=== PATIENT | male | born 1965 | race Caucasian/White ===

== ENCOUNTER 2017-09-22 15:30 | Emergency (ER) | payer MEDICAID ==
[2017-09-22] MEDS ORDERED: Sodium Chloride 0.9% 1,000 ML IV ONE (15:31)
--- NOTE | 2017-09-22 15:47 | EDM.PDOC ---
ED HPI GENERAL MEDICAL PROBLEM - General Chief Complaint: Upper Extremity Injury/Pain Stated Complaint: AMBULANCE Time Seen by Provider: 09/22/17 15:31 - History of Present Illness INITIAL COMMENTS - FREE TEXT/NARRATIVE: HISTORY AND PHYSICAL: History of present illness: The patient is a 52-year-old male with a history of hypertension which he does not take medications for and prostate problems who had presented to [facility] earlier today after tripping and sustaining a simple fall impacting his left shoulder and causing it to dislocate. The patient has never had any injury to her shoulder before and did not hit his head or face and did not pass out or black out. He denies any head neck or back pain and has no other extremity complaints and had no systemic complaints prior to this fall. Patient last ate food this morning at 6 AM and last had a small amount of water when he was at [facility] about an hour ago. Patient has a history of pectus excavatum Review of systems: As per history of present illness and below otherwise all systems reviewed and negative. Past medical history: As per history of present illness and as reviewed below otherwise noncontributory. Surgical history: As per history of present illness and as reviewed below otherwise noncontributory. Social history: No reported history of drug or alcohol abuse. Family history: As per history of present illness and as reviewed below otherwise noncontributory. Physical exam: Gen.: Well-developed well-nourished man who is nontoxic and looks uncomfortable in the room. Vital signs are noted by me. HEENT: Atraumatic, normocephalic, pupils reactive, negative for conjunctival pallor or scleral icterus, mucous membranes moist, throat clear, neck supple, nontender, trachea midline. Her are no midline step-offs in his defects of the cervical spine Lungs: Clear to auscultation, breath sounds equal bilaterally, chest nontender. The patient has significant pectus excavatum Heart: S1S2, regular, rate and rhythm no overt murmurs Abdomen: Soft, nondistended, nontender. NABS. Pelvis: Stable nontender. Genitourinary: Deferred. Rectal: Deferred. Extremities: Atraumatic with full range of motion of all extremities with the exception of the left upper extremity where he has visible step off of the acromioclavicular joint and visible dislocation of the shoulder. There is no soft tissue swelling ecchymosis or palpable deformities of the clavicle proximal humerus and no distal tenderness or deformities noticed of the distal humerus elbow forearm wrist or hand. Pulses are intact as is neurovascular. Her , negative for cords or calf pain. Neurovascular unremarkable. Neuro: Awake, alert, oriented. Cranial nerves II through XII unremarkable. Cerebellum unremarkable. Motor and sensory unremarkable throughout. Exam nonfocal. Back: There are no midline step-offs in his defects of the thoracic or lumbar spine no posterior rib tenderness Diagnostics: X-ray left shoulder x 2 Therapeutics: IV fluids Dilaudid Zofran Patient received fentanyl and Zofran in route per EMS, shoulder immobilizer 1542: Case was discussed with Dr. Pichardo our orthopedic surgeon who is comfortable with me giving the patient some Dilaudid and attempting simple reduction in the ED. He will be available for conscious sedation and reduction if I am unable to perform the reduction. Procedure note: After 1 mg of Dilaudid with Zofran was given, the patient was positioned and using traction with scapular manipulation I was able to reduce the shoulder easily without complication. A postreduction film will be performed. A shoulder mobilizer was placed. Patient tolerated the procedure well without complications. He'll be referred to orthopedics clinic Postreduction x-ray reveals degenerative changes of the joints but normal alignment. Patient will be discharged home with the shoulder mobilizer and ortho follow-up Impression: Left shoulder anterior dislocation, reduced Definitive disposition and diagnosis as appropriate pending reevaluation and review of above. left shoulder Pain Score (Numeric/FACES): 8 - Related Data Allergies Allergy/AdvReac Type Severity Reaction Status Date / Time No Known Allergies Allergy Verified 09/22/17 15:37 Home Meds: Home Meds Prostate Medication 09/22/17 [History] Past Medical History - Past Health History Medical/Surgical History: Denies Medical/Surgical History Other HEENT History: broken, missing teeth - Past Surgical History Other Musculoskeletal Surgeries/Procedures:: knee surgery Social & Family History - Tobacco Use Smoking Status *Q: Current Every Day Smoker Years of Tobacco use: 30 Second Hand Smoke Exposure: Yes - Alcohol Use Days Per Week of Alcohol Use: 0 - Recreational Drug Use Recreational Drug Use: Yes Drug Use in Last 12 Months: No Recreational Drug Type: Reports: Marijuana/Hashish Recreational Drug Use Frequency: Not Used In Over 3 Months Recreational Drug Last Use: 6 years ago Review of Systems - Review of Systems Review Of Systems: ROS reveals no pertinent complaints other than HPI. ED EXAM, GENERAL - Physical Exam Exam: See Below (See dictation) Course - Vital Signs Last Recorded V/S: Last Vital Signs Temp 36.4 C 09/22/17 15:38 Pulse 65 09/22/17 15:38 Resp 16 09/22/17 15:38 BP 157/105 H 09/22/17 15:38 Pulse Ox 99 09/22/17 15:38 - Orders/Labs/Meds Orders: Active Orders 24 hr Category Date Time Status DME for Discharge [COMM] Stat Oth 09/22/17 15:59 Ordered Meds: Medications Discontinued Medications Generic Name Dose Route Start Last Admin Trade Name Archana PRN Reason Stop Dose Admin Hydromorphone HCl 1 mg 09/22/17 15:48 09/22/17 15:52 Dilaudid IVPUSH 09/22/17 15:49 1 mg ONETIME ONE Administration Sodium Chloride 1,000 mls @ 999 mls/hr 09/22/17 15:31 09/22/17 15:50 Normal Saline IV 09/22/17 16:31 999 mls/hr STAT ONE Administration Ondansetron HCl 4 mg 09/22/17 15:48 09/22/17 15:52 Zofran IVPUSH 09/22/17 15:49 4 mg ONETIME ONE Administration Departure - Departure Time of Disposition: 16:33 Disposition: Home, Self-Care 01 Condition: Good Clinical Impression: Dislocation, shoulder, inferior Qualifiers: Encounter type: initial encounter Laterality: left Qualified Code(s): S43.035A - Inferior dislocation of left humerus, initial encounter - Discharge Information Forms: ED Department Discharge Additional Instructions: The following information is given to patients seen in the emergency department who are being discharged to home. This information is to outline your options for follow-up care. We provide all patients seen in our emergency department with a follow-up referral. The need for follow-up, as well as the timing and circumstances, are variable depending upon the specifics of your emergency department visit. If you don't have a primary care physician on staff, we will provide you with a referral. We always advise you to contact your personal physician following an emergency department visit to inform them of the circumstance of the visit and for follow-up with them and/or the need for any referrals to a consulting specialist. The emergency department will also refer you to a specialist when appropriate. This referral assures that you have the opportunity for followup care with a specialist. All of these measure are taken in an effort to provide you with optimal care, which includes your followup. Under all circumstances we always encourage you to contact your private physician who remains a resource for coordinating your care. When calling for followup care, please make the office aware that this follow-up is from your recent emergency room visit. If for any reason you are refused follow-up, please contact the [facility] emergency department at and ask to speak to the emergency department charge nurse. [facility]--Orthopedic clinic [address] [address] Please wear shoulder immobilizer for the next 5-7 days at all times and do not remove and please call the ortho clinic tomorrow morning for follow-up appointment next week. Ice to area and [id number] medications for pain. Return to ER as needed and as discussed. - My Orders Last 24 Hours: My Active Orders 09/22/17 15:59 DME for Discharge [COMM] Stat - Assessment/Plan Last 24 Hours: My Active Orders 09/22/17 15:59 DME for Discharge [COMM] Stat
[2017-09-22] MEDS ORDERED: HYDROmorphone 2 MG/ML Syringe IVPUSH ONE (15:48)
[2017-09-22] MEDS ORDERED: Ondansetron 4 MG/2 ML SDV IVPUSH ONE (15:48)
--- NOTE | 2017-09-22 15:55 | CR ---
EXAMINATION: Left shoulder HISTORY: Pain COMPARISON: None TECHNIQUE: Single AP view FINDINGS/IMPRESSION: Single AP view demonstrates an inferior glenohumeral dislocation. Otherwise osse ous structures appear intact. Bone mineralization is otherwise normal.
--- NOTE | 2017-09-22 16:22 | CR ---
EXAMINATION: Left shoulder HISTORY: Post reduction COMPARISON: Same day TECHNIQUE: 2 views FINDINGS/IMPRESSION: The humerus appears successfully reduced the glenohumeral joint in normal alignm ent. 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 No definite acute osseous abnormality.
[2017-09-22 18:27] VITALS: BP 158/100
== END 2017-09-22 17:13 | disposition home or self-care (01) ==
LOC: MW.ED 15:30
DX: S43.035A Inferior dislocation of left humerus, initial encounter (principal); S43.015A Anterior dislocation of left humerus, initial encounter; F17.210 Nicotine dependence, cigarettes, uncomplicated; I10 Essential (primary) hypertension; W01.0XXA Fall on same level from slipping, tripping and stumbling without subsequent striking against object, initial encounter
CPT/HCPCS: 23650; 73020; 73030; 96361; 96374; 96375; 99284; J1170; J2405; J7040

== ENCOUNTER 2022-12-29 11:37 | Inpatient (IN) | payer BC, MEDICAID ==
[2022-12-29] MEDS ORDERED: Sodium Chloride 0.9% 2.5 ML Syringe FLUSH PRN (11:54)
[2022-12-29] MEDS ORDERED: Sodium Chloride 0.9% 10 ML Syringe FLUSH PRN (11:54)
[2022-12-29] MEDS ORDERED: cefTRIAXone 1 GM in Sodium Chloride 0.9% 50 ML IV STA (12:37)
[2022-12-29] MEDS ORDERED: Sodium Chloride 0.9% 1,000 ML IV STA ×2 (12:38→14:39)
[2022-12-29 12:52] LABS: CARBON DIOXIDE,CO2 17.8 mmol/L (21.0-32.0); POTASSIUM,K 3.7 mmol/L (3.5-5.1)
[2022-12-29] MEDS ORDERED: cefTRIAXone 1 GM Vial ONE (13:07)
[2022-12-29] MEDS ORDERED: Acetaminophen 325 MG Tab PO PRN (15:57)
[2022-12-29] MEDS ORDERED: Tamsulosin 0.4 MG Cap.ER PO ONE (18:00)
[2022-12-29] MEDS: Nicotine 21 MG/24 Hr Patch TRDERM SCH (18:31)
[2022-12-29] MEDS: Enoxaparin 40 MG/0.4 ML Syringe SUBCUT SCH (21:58)
[2022-12-30 04:36] LABS: CARBON DIOXIDE,CO2 19.2 mmol/L (21.0-32.0); POTASSIUM,K 3.6 mmol/L (3.5-5.1)
[2022-12-30] MEDS: Tamsulosin 0.4 MG Cap.ER PO SCH (07:59)
[2022-12-30] MEDS ORDERED: Levofloxacin/Dextrose 5%-Water 150 ML IV ONE (11:02)
[2022-12-30] MEDS: Levofloxacin/Dextrose 5%-Water 750 MG in Premix Bag 1 BAG IV SCH (11:25)
[2022-12-30] MEDS: Lactated Ringers 1,000 ML IV SCH ×3 (11:29→23:00)
[2022-12-30 11:38] LABS: HEMOGLOBIN A1C 5.6 %
[2022-12-30] MEDS ORDERED: cefTRIAXone 1 GM in Sodium Chloride 0.9% 50 ML IV SCH (12:00)
[2022-12-30 12:22] LABS: CORONAVIRUS COVID-19 NAA NEGATIVE (NEGATIVE); INFLUENZA A NAA NEGATIVE (NEGATIVE); INFLUENZA B NAA NEGATIVE (NEGATIVE)
[2022-12-30] MEDS ORDERED: Lactated Ringers 1,000 ML IV ONE (13:42)
[2022-12-30] MEDS: Nicotine 21 MG/24 Hr Patch TRDERM SCH (18:38)
[2022-12-30] MEDS: Enoxaparin 40 MG/0.4 ML Syringe SUBCUT SCH (22:02)
[2022-12-31 06:50] LABS: CARBON DIOXIDE,CO2 21.5 mmol/L (21.0-32.0); POTASSIUM,K 3.6 mmol/L (3.5-5.1)
[2022-12-31] MEDS: Lactated Ringers 1,000 ML IV SCH (08:09)
[2022-12-31] MEDS: Tamsulosin 0.4 MG Cap.ER PO SCH (08:09)
[2022-12-31] MEDS: Levofloxacin/Dextrose 5%-Water 750 MG in Premix Bag 1 BAG IV SCH (10:25)
[2022-12-31] MEDS: Nicotine 21 MG/24 Hr Patch TRDERM SCH (20:36)
[2022-12-31] MEDS: Enoxaparin 40 MG/0.4 ML Syringe SUBCUT SCH (20:37)
[2023-01-01] MEDS: Lactated Ringers 1,000 ML IV SCH (03:03)
[2023-01-01] MEDS: Tamsulosin 0.4 MG Cap.ER PO SCH (08:56)
[2023-01-01] MEDS: Levofloxacin/Dextrose 5%-Water 750 MG in Premix Bag 1 BAG IV SCH (10:22)
[2023-01-01 10:46] LABS: CARBON DIOXIDE,CO2 26.3 mmol/L (21.0-32.0); POTASSIUM,K 3.9 mmol/L (3.5-5.1)
[2023-01-01] MEDS ORDERED: Albuterol/Ipratropium 3.0-0.5 MG/3 ML Neb Soln NEB PRN (11:31)
[2023-01-01] MEDS: Nicotine 21 MG/24 Hr Patch TRDERM SCH (18:40)
[2023-01-01] MEDS: Enoxaparin 40 MG/0.4 ML Syringe SUBCUT SCH (21:17)
[2023-01-02 06:33] LABS: CARBON DIOXIDE,CO2 25.3 mmol/L (21.0-32.0); POTASSIUM,K 3.9 mmol/L (3.5-5.1)
[2023-01-02] MEDS: Tamsulosin 0.4 MG Cap.ER PO SCH (08:27)
[2023-01-02] MEDS: Levofloxacin/Dextrose 5%-Water 750 MG in Premix Bag 1 BAG IV SCH (10:19)
[2023-01-02 11:48] VITALS: BP 133/66; PULSE 64
== END 2023-01-02 13:30 | disposition home or self-care (01) | DRG 690 ==
LOC: MW.ED 11:37 → MW.MS 15:32 → OBSVTOIN 12-31 14:50
PROVIDERS: ADMIT Hospitalist; ATTEND Hospitalist
DX: N39.0 Urinary tract infection, site not specified (principal); J98.11 Atelectasis; N17.9 Acute kidney failure, unspecified; N40.0 Benign prostatic hyperplasia without lower urinary tract symptoms; R33.9 Retention of urine, unspecified; F15.10 Other stimulant abuse, uncomplicated; F17.200 Nicotine dependence, unspecified, uncomplicated; F12.10 Cannabis abuse, uncomplicated; Z56.0 Unemployment, unspecified
CPT/HCPCS: 0240U; 36415; 51702; 71045; 71045-26; 74176; 74176-26; 80048; 80053; 80305-QW; 80307; 81001; 82947; 83036; 83605; 84484; 85025; 87040; 87086; 93005; 96361; 96365; 96366; 96367; 96372; 99222; 99231; 99232; 99239; 99284; 99285-25; A9270-GY; G0378; J0696; J1650; J1956; J3490; J7030; J7120

== ENCOUNTER 2023-01-13 20:26 | Emergency (ER) | payer MEDICAID ==
[2023-01-13 21:23] VITALS: BP 128/76; PULSE 72
== END 2023-01-13 21:21 | disposition home or self-care (01) ==
LOC: MW.ED 20:26
DX: R33.9 Retention of urine, unspecified (principal); J44.9 Chronic obstructive pulmonary disease, unspecified; Z86.16 Personal history of COVID-19
CPT/HCPCS: 51702; 87086; 99283

== ENCOUNTER 2023-01-28 09:10 | Emergency (ER) | payer MEDICAID ==
[2023-01-28 10:19] LABS: A/G RATIO 0.9 (0.9-1.6); ALBUMIN 3.4 g/dL (3.4-5.0); BILIRUBIN TOTAL 0.9 mg/dL (0.2-1.0); CALCIUM 9.3 mg/dL (8.5-10.1); CARBON DIOXIDE,CO2 27.5 mmol/L (21.0-32.0); CREATININE 1.1 mg/dL (0.8-1.3); EST CRCL DRUG DOSING (CG) 71.3 mL/min; POTASSIUM,K 4.2 mmol/L (3.5-5.1)
[2023-01-28 10:36] VITALS: BP 156/92; PULSE 64
== END 2023-01-28 10:39 | disposition home or self-care (01) ==
LOC: MW.ED 09:10
DX: R33.9 Retention of urine, unspecified (principal); Z86.16 Personal history of COVID-19
CPT/HCPCS: 36415; 51702; 80053; 99283

== ENCOUNTER 2023-03-18 08:31 | Emergency (ER) | payer MEDICAID ==
[2023-03-18 08:49] VITALS: BP 138/90
[2023-03-18 09:07] VITALS: PULSE 75
== END 2023-03-18 09:06 | disposition home or self-care (01) ==
LOC: MW.ED 08:31
DX: R33.9 Retention of urine, unspecified (principal); Z86.16 Personal history of COVID-19
CPT/HCPCS: 51702; 99283; 99284

== ENCOUNTER 2023-04-07 20:28 | Emergency (ER) | payer SELFPAY ==
[2023-04-07] MEDS ORDERED: Sodium Chloride 0.9% 10 ML Syringe FLUSH PRN (20:38)
[2023-04-07] MEDS ORDERED: Sodium Chloride 0.9% 2.5 ML Syringe FLUSH PRN (20:38)
[2023-04-07 21:05] LABS: BASE EXCESS VENOUS 0.3 (-2.0-3.0); PH,VENOUS 7.44 (7.31-7.41)
[2023-04-07 21:12] LABS: BASOPHILS PERCENT AUTO 0.4 % (0.0-1.5); EOSINOPHILS ABSOLUTE AUTO 0.2 K/uL (0.0-0.7); EOSINOPHILS PERCENT AUTO 2.3 % (0.0-7.0); HEMATOCRIT 47.3 % (38.0-50.0); HEMOGLOBIN 16.7 g/dL (13.0-17.0); LYMPHOCYTES PERCENT AUTO 26.5 % (16.0-40.0); MEAN CORPUSCULAR HEMOGLOBIN 31.5 pg (27.0-32.0); MEAN CORPUSCULAR HGB CONC 35.3 g/dL (31.0-37.0); MEAN CORPUSCULAR VOLUME 89.2 fL (80.0-98.0); MONOCYTES ABSOLUTE AUTO 0.6 K/uL (0.0-0.8); MONOCYTES PERCENT AUTO 8.5 % (0.0-15.0); NEUTROPHILS ABSOLUTE AUTO 4.7 K/uL (1.4-5.7); NEUTROPHILS PERCENT AUTO 62.3 % (48.0-80.0); NRBC ABSOLUTE 0 K/uL; PLATELET COUNT,PLT 290 K/uL (150-400); WHITE BLOOD CELL COUNT,WBC 7.54 K/uL (4.0-11.0)
[2023-04-07 21:20] LABS: INR 1.06 (0.86-1.11)
[2023-04-07] MEDS ORDERED: Ondansetron 4 MG/2 ML SDV IVPUSH ONE (21:31)
[2023-04-07 21:42] LABS: LACTIC ACID 2.7 mmol/L (0.4-2.0)
[2023-04-07 21:44] LABS: A/G RATIO 0.8 (0.9-1.6); ACETAMINOPHEN <2.0 ug/mL; ALANINE AMINOTRANSFERASE,ALT 17 IU/L (14-63); ALBUMIN 3.2 g/dL (3.4-5.0); ALKALINE PHOSPHATASE 97 U/L (46-116); ASPARTATE AMNIOTRANSFERASE,AST 12 IU/L (15-37); BILIRUBIN TOTAL 0.8 mg/dL (0.2-1.0); BLOOD UREA NITROGEN,BUN 17 mg/dL (7.0-18.0); CHLORIDE,CL 103 mmol/L (98-107); CREATININE 1.3 mg/dL (0.8-1.3); EST CRCL DRUG DOSING (CG) 52.29 mL/min; GLUCOSE RANDOM 145 mg/dL (74-106); LIPASE 447 U/L (73-393); MAGNESIUM 2.1 mg/dL (1.8-2.4); POTASSIUM,K 3.6 mmol/L (3.5-5.1); PROTEIN TOTAL,TP 7.2 g/dL (6.4-8.2); SALICYLATE 3.7 mg/dL (0.0-20.0); SODIUM,NA 140 mmol/L (136-148); TSH ULTRASENSITIVE 0.83 uIU/mL (0.36-3.74)
[2023-04-07 21:45] LABS: BILIRUBIN,URINE NEGATIVE (NEGATIVE); COLOR,URINE YELLOW; GLUCOSE,URINE NEGATIVE (NEGATIVE); KETONES,URINE 15 mg/dL (NEGATIVE); LEUKOCYTE ESTERASE,URINE MODERATE (NEGATIVE); NITRITE,URINE POSITIVE (NEGATIVE); OCCULT BLOOD,URINE SMALL (NEGATIVE); PROTEIN,URINE 30 mg/dL (NEGATIVE); UROBILINOGEN,URINE 0.2 EU/dL (<2.0)
[2023-04-07] MEDS ORDERED: Lactated Ringers 1,000 ML IV SCH ×2 (21:45→22:15)
[2023-04-07 21:47] LABS: APPEARANCE,URINE CLOUDY
[2023-04-07 21:48] LABS: ESTIMATED GFR 64 mL/min (>60); ETHANOL BLOOD MEDICAL 3 mg/dL
[2023-04-07 21:53] LABS: EPITHELIAL CELLS,URINE FEW (NONE-FEW); WBC,URINE TO NUMEROUS TO COUNT (0-5/HPF)
[2023-04-07 21:54] LABS: BACTERIA,URINE 4+ (NEGATIVE)
[2023-04-07] MEDS ORDERED: cefTRIAXone 1 GM in Sodium Chloride 0.9% 50 ML IV ONE (21:55)
[2023-04-07 21:56] LABS: AMPHETAMINES SCREEN, URINE PRESUMPTIVE POSITIVE (CUTOFF=500); BARBITURATE SCREEN,URINE NEGATIVE (CUTOFF=200); BENZODIAZEPINES SCREEN,URINE NEGATIVE (CUTOFF=150); BUPRENORPHINE SCREEN,URINE NEGATIVE (CUTOFF=10); METHADONE SCREEN, URINE NEGATIVE (CUTOFF=200); METHAMPHETAMINES SCREEN, URINE PRESUMPTIVE POSITIVE (CUTOFF=500); OXYCODONE SCREEN,URINE NEGATIVE (CUT0FF=100); PCP SCREEN,URINE NEGATIVE (CUTOFF=25); PROPOXYPHENE SCREEN,URINE NEGATIVE (CUTOFF=300); THC SCREEN,URINE 20 NG/ML PRESUMPTIVE POSITIVE (CUTOFF=50)
[2023-04-07] MEDS ORDERED: Iopamidol 755 MG/ML 500 ML Multipack Bottle IVPUSH ONE (22:27)
[2023-04-08] MEDS ORDERED: Cephalexin 500 MG Cap PO ONE (18:47)
[2023-04-08 19:06] VITALS: BP 148/103; PULSE 70
[2023-04-09] MEDS ORDERED: Acetaminophen 500 MG Tab PO ONE (05:55)
== END 2023-04-09 08:23 | disposition home or self-care (01) ==
LOC: MW.ED 20:28
DX: T39.012A Poisoning by aspirin, intentional self-harm, initial encounter (principal); N30.00 Acute cystitis without hematuria; Z86.16 Personal history of COVID-19; Z20.822 Contact with and (suspected) exposure to COVID-19
CPT/HCPCS: 36415; 71045; 71045-26; 74018; 74018-26; 74177; 74177-26; 80053; 80143; 80179; 80305-QW; 80307; 81001; 82803; 83605; 83690; 83735; 83930; 83935; 84443; 84484; 85025; 85610; 86850; 86900; 86901; 87086; 87088; 87186; 93005; 93010; 96361; 96365; 96375; 99285; 99285-25; A9270-GY; J0696; J2405; J3490; J7120; Q9967; U0002

== ENCOUNTER 2023-06-01 22:45 | Emergency (ER) | payer OTHER ==
[2023-06-01 23:43] VITALS: BP 125/86; PULSE 77
== END 2023-06-01 23:42 | disposition home or self-care (01) ==
LOC: MW.ED 22:45
DX: R39.15 Urgency of urination (principal); Z86.16 Personal history of COVID-19
CPT/HCPCS: 99283; 99284

== ENCOUNTER 2023-12-07 12:27 | Emergency (ER) | payer SELFPAY ==
[2023-12-07 12:50] VITALS: BP 162/101; PULSE 104
== END 2023-12-07 13:10 ==
LOC: MW.ED 12:27
DX: I10 Essential (primary) hypertension (principal); Z13.9 Encounter for screening, unspecified; Z86.19 Personal history of other infectious and parasitic diseases; Z86.16 Personal history of COVID-19; Z75.8 Other problems related to medical facilities and other health care
CPT/HCPCS: 99282; 99283

== ENCOUNTER 2023-12-17 01:34 | Emergency (ER) | payer MEDICAID, OTHER ==
[2023-12-17 01:47] LABS: BASOPHILS ABSOLUTE AUTO 0.03 K/uL (0.00-0.20); BASOPHILS PERCENT AUTO 0.3 % (0.0-1.0); EOSINOPHILS ABSOLUTE AUTO 0.23 K/uL (0.00-0.45); EOSINOPHILS PERCENT AUTO 2.2 % (0.0-6.0); HEMATOCRIT 50.6 % (42.0-52.0); HEMOGLOBIN 17.2 g/dL (14.0-18.0); IMMATURE GRAN ABSOLUTE AUTO 0.03 K/uL (0.00-0.05); IMMATURE GRAN PERCENT AUTO 0.3 % (0.0-0.4); LYMPHOCYTES ABSOLUTE AUTO 3.94 K/uL (1.00-4.80); LYMPHOCYTES PERCENT AUTO 37.4 % (24.0-44.0); MEAN CORPUSCULAR HEMOGLOBIN 31.2 pg (28.0-32.0); MEAN CORPUSCULAR VOLUME 91.8 fL (83.0-99.0); MEAN PLATELET VOLUME 9.7 fL (9.4-12.4); MONOCYTES PERCENT AUTO 8.5 % (0.0-8.0); NEUTROPHILS ABSOLUTE AUTO 5.41 K/uL (1.80-7.70); NEUTROPHILS PERCENT AUTO 51.3 % (41.0-71.0); PLATELET COUNT,PLT 253 K/uL (150-400); RED BLOOD CELL COUNT 5.51 M/uL (4.52-5.90); WHITE BLOOD CELL COUNT,WBC 10.54 K/uL (3.9-11.3)
[2023-12-17] MEDS: Sodium Chloride 0.9% 10 ML Syringe FLUSH PRN (01:48)
[2023-12-17] MEDS: Sodium Chloride 0.9% 2.5 ML Syringe FLUSH PRN (01:48)
[2023-12-17 02:14] LABS: A/G RATIO 0.9 (0.9-1.6); ALANINE AMINOTRANSFERASE,ALT 77 IU/L (14-63); ALBUMIN 3.6 g/dL (3.4-5.0); ALKALINE PHOSPHATASE 94 U/L (46-116); ASPARTATE AMNIOTRANSFERASE,AST 62 IU/L (15-37); BILIRUBIN TOTAL 0.4 mg/dL (0.2-1.0); BLOOD UREA NITROGEN,BUN 29 mg/dL (7.0-18.0); CALCIUM 9.4 mg/dL (8.5-10.1); CARBON DIOXIDE,CO2 21.3 mmol/L (21.0-32.0); CHLORIDE,CL 100 mmol/L (98-107); CREATININE 1.5 mg/dL (0.8-1.3); ETHANOL BLOOD MEDICAL <3 mg/dL; GLUCOSE RANDOM 102 mg/dL (74-106); PROTEIN TOTAL,TP 7.4 g/dL (6.4-8.2); SODIUM,NA 137 mmol/L (136-148)
[2023-12-17 02:19] LABS: APPEARANCE,URINE CLOUDY; BILIRUBIN,URINE NEGATIVE (NEGATIVE); COLOR,URINE YELLOW; GLUCOSE,URINE NEGATIVE (NEGATIVE); KETONES,URINE NEGATIVE (NEGATIVE); LEUKOCYTE ESTERASE,URINE MODERATE (NEGATIVE); NITRITE,URINE POSITIVE (NEGATIVE); OCCULT BLOOD,URINE TRACE-INTACT (NEGATIVE); PROTEIN,URINE NEGATIVE (NEGATIVE); UROBILINOGEN,URINE 0.2 EU/dL (<2.0)
[2023-12-17 02:19] LABS: ESTIMATED GFR 54 mL/min (>60)
[2023-12-17 02:26] LABS: BACTERIA,URINE 2+ (NEGATIVE); EPITHELIAL CELLS,URINE RARE (NONE-FEW); WBC,URINE 45-50 (0-5/HPF)
[2023-12-17 02:28] LABS: AMPHETAMINES SCREEN, URINE NEGATIVE (CUTOFF=500); BARBITURATE SCREEN,URINE NEGATIVE (CUTOFF=200); BENZODIAZEPINES SCREEN,URINE NEGATIVE (CUTOFF=150); BUPRENORPHINE SCREEN,URINE NEGATIVE (CUTOFF=10); METHADONE SCREEN, URINE NEGATIVE (CUTOFF=200); METHAMPHETAMINES SCREEN, URINE NEGATIVE (CUTOFF=500); OXYCODONE SCREEN,URINE NEGATIVE (CUT0FF=100); PCP SCREEN,URINE NEGATIVE (CUTOFF=25); THC SCREEN,URINE 20 NG/ML NEGATIVE (CUTOFF=50)
[2023-12-17] MEDS: cefTRIAXone 1 GM in Sodium Chloride 0.9% 50 ML IV ONE (02:35)
[2023-12-17] MEDS: Sodium Chloride 0.9% 1,000 ML IV ONE (03:10)
[2023-12-17 03:40] VITALS: BP 121/76; PULSE 72
== END 2023-12-17 04:20 ==
LOC: MW.ED 01:34
DX: R55 Syncope and collapse (principal); N30.00 Acute cystitis without hematuria; Z75.8 Other problems related to medical facilities and other health care; Z79.899 Other long term (current) drug therapy
CPT/HCPCS: 36415; 70450; 71045; 80053; 80305; 80307; 81001; 84484; 85025; 96361; 96365; 99285; J0696; J3490; J7030; 93010; 99283

== ENCOUNTER 2024-07-10 17:46 | Emergency (ER) | payer SELFPAY ==
[2024-07-10 18:37] LABS: BASOPHILS ABSOLUTE AUTO 0.03 K/uL (0.00-0.20); BASOPHILS PERCENT AUTO 0.6 % (0.0-1.0); EOSINOPHILS ABSOLUTE AUTO 0.12 K/uL (0.00-0.45); EOSINOPHILS PERCENT AUTO 2.3 % (0.0-6.0); HEMATOCRIT 44.6 % (42.0-52.0); IMMATURE GRAN ABSOLUTE AUTO 0.01 K/uL (0.00-0.05); IMMATURE GRAN PERCENT AUTO 0.2 % (0.0-0.4); LYMPHOCYTES ABSOLUTE AUTO 1.55 K/uL (1.00-4.80); LYMPHOCYTES PERCENT AUTO 29.4 % (24.0-44.0); MEAN CORPUSCULAR HEMOGLOBIN 31.1 pg (28.0-32.0); MEAN CORPUSCULAR HGB CONC 33.6 g/dL (32.0-36.0); MEAN CORPUSCULAR VOLUME 92.5 fL (83.0-99.0); MEAN PLATELET VOLUME 9.1 fL (9.4-12.4); MONOCYTES ABSOLUTE AUTO 0.51 K/uL (0.00-0.80); MONOCYTES PERCENT AUTO 9.7 % (0.0-8.0); NEUTROPHILS ABSOLUTE AUTO 3.06 K/uL (1.80-7.70); NEUTROPHILS PERCENT AUTO 57.8 % (41.0-71.0); PLATELET COUNT,PLT 274 K/uL (150-400); RED BLOOD CELL COUNT 4.82 M/uL (4.52-5.90); WHITE BLOOD CELL COUNT,WBC 5.28 K/uL (3.9-11.3)
[2024-07-10] MEDS: Lisinopril 10 MG Tab PO STA (19:15)
[2024-07-10 19:17] LABS: ALBUMIN 3.6 g/dL (3.4-5.0); BILIRUBIN TOTAL 0.6 mg/dL (0.2-1.0); CARBON DIOXIDE,CO2 25.4 mmol/L (21.0-32.0); CREATININE 1.1 mg/dL (0.8-1.3); EST CRCL DRUG DOSING (CG) 75.14 mL/min; PROTEIN TOTAL,TP 7.2 g/dL (6.4-8.2)
[2024-07-10 19:47] LABS: APPEARANCE,URINE SLT CLOUDY; BILIRUBIN,URINE NEGATIVE (NEGATIVE); COLOR,URINE BROWN; GLUCOSE,URINE NEGATIVE (NEGATIVE); KETONES,URINE NEGATIVE (NEGATIVE); LEUKOCYTE ESTERASE,URINE SMALL (NEGATIVE); NITRITE,URINE POSITIVE (NEGATIVE); OCCULT BLOOD,URINE LARGE (NEGATIVE); PROTEIN,URINE 100 mg/dL (NEGATIVE); UROBILINOGEN,URINE 0.2 EU/dL (<2.0)
[2024-07-10 20:01] LABS: BACTERIA,URINE FEW (NEGATIVE); EPITHELIAL CELLS,URINE FEW (NONE-FEW); RBC,URINE TOO NUMEROUS TO CT (0-2/HPF)
[2024-07-10] MEDS: cefTRIAXone 500 MG in Lidocaine 1% 1 ML IM STA (21:54)
[2024-07-10 21:58] VITALS: BP 151/90; PULSE 78
== END 2024-07-10 21:57 ==
LOC: MW.ED 17:46
DX: Z02.89 Encounter for other administrative examinations (principal); N30.00 Acute cystitis without hematuria; N40.1 Benign prostatic hyperplasia with lower urinary tract symptoms; R33.8 Other retention of urine; I10 Essential (primary) hypertension; F17.210 Nicotine dependence, cigarettes, uncomplicated; Z75.8 Other problems related to medical facilities and other health care
CPT/HCPCS: 36415; 51701; 70450; 71046; 80053; 81001; 84484; 85025; 87086; 93005; 96372; 99284; A9270; J0696; 93010; J3490

== ENCOUNTER 2025-07-18 09:37 | Emergency (ER) | payer SELFPAY ==
[2025-07-18] MEDS ORDERED: Sodium Chloride 0.9% 2.5 ML Syringe FLUSH PRN (10:08)
[2025-07-18] MEDS ORDERED: Sodium Chloride 0.9% 10 ML Syringe FLUSH PRN (10:08)
[2025-07-18 11:07] LABS: APPEARANCE,URINE CLOUDY; GLUCOSE,URINE NEGATIVE (NEGATIVE); OCCULT BLOOD,URINE LARGE (NEGATIVE)
[2025-07-18 11:11] LABS: BASOPHILS ABSOLUTE AUTO 0.03 K/uL (0.00-0.20); BASOPHILS PERCENT AUTO 0.4 % (0.0-1.0); EOSINOPHILS ABSOLUTE AUTO 0.14 K/uL (0.00-0.45); EOSINOPHILS PERCENT AUTO 1.8 % (0.0-6.0); IMMATURE GRAN ABSOLUTE AUTO 0.02 K/uL (0.00-0.05); IMMATURE GRAN PERCENT AUTO 0.3 % (0.0-0.4); LYMPHOCYTES ABSOLUTE AUTO 2.08 K/uL (1.00-4.80); LYMPHOCYTES PERCENT AUTO 27.4 % (24.0-44.0); MEAN PLATELET VOLUME 9.0 fL (9.4-12.4); MONOCYTES ABSOLUTE AUTO 0.85 K/uL (0.00-0.80); MONOCYTES PERCENT AUTO 11.2 % (0.0-8.0); NEUTROPHILS ABSOLUTE AUTO 4.48 K/uL (1.80-7.70); NEUTROPHILS PERCENT AUTO 58.9 % (41.0-71.0); NRBC ABSOLUTE 0.00 K/uL (0.00-0.02); NRBC PERCENT 0.0 /100WBC (0.0-0.2); PLATELET COUNT,PLT 307 K/uL (150-400); RED BLOOD CELL COUNT 5.28 M/uL (4.52-5.90); WHITE BLOOD CELL COUNT,WBC 7.60 K/uL (3.9-11.3)
[2025-07-18 11:13] LABS: EPITHELIAL CELLS,URINE RARE (NONE-FEW); TRIPLE PHOSPHATE CRYSTALS,UR OCCASIONAL (NEGATIVE)
[2025-07-18 11:28] LABS: INR 1.0 (0.86-1.11); PTT,PARTIAL THROMBOPLSTIN TIME 27.5 SEC (23.9-30.7)
[2025-07-18 11:34] LABS: A/G RATIO 1.0 (0.9-1.6); ALANINE AMINOTRANSFERASE,ALT 16.0 IU/L (14-63); ASPARTATE AMNIOTRANSFERASE,AST 20.0 IU/L (15-37); BILIRUBIN TOTAL 0.5 mg/dL (0.2-1.0); BLOOD UREA NITROGEN,BUN 42.0 mg/dL (7.0-18.0); CARBON DIOXIDE,CO2 27.3 mmol/L (21.0-32.0); CHLORIDE,CL 105.0 mmol/L (98-107); CREATININE 1.1 mg/dL (0.8-1.3); EST CRCL DRUG DOSING (CG) 69.59 mL/min; GLUCOSE RANDOM 98.0 mg/dL (74-106); POTASSIUM,K 4.6 mmol/L (3.5-5.1); PROTEIN TOTAL,TP 7.6 g/dL (6.4-8.2); SODIUM,NA 142.0 mmol/L (136-148)
[2025-07-18 11:36] LABS: ESTIMATED GFR 77.0 mL/min (>60)
[2025-07-18 11:40] LABS: LACTIC ACID 1.4 mmol/L (0.4-2.0)
[2025-07-18] MEDS: cefTRIAXone 2 GM in Water For Injection, Sterile 20 ML IVPUSH ONE (12:00)
[2025-07-18 13:30] VITALS: PULSE 83
[2025-07-18 22:52] VITALS: BP 147/90
== END 2025-07-18 14:30 | disposition home or self-care (01) ==
LOC: MW.ED 09:37
DX: N40.1 Benign prostatic hyperplasia with lower urinary tract symptoms (principal); N13.8 Other obstructive and reflux uropathy; N39.0 Urinary tract infection, site not specified; E86.0 Dehydration; Z96.0 Presence of urogenital implants; F17.200 Nicotine dependence, unspecified, uncomplicated; Z79.899 Other long term (current) drug therapy
CPT/HCPCS: 36415; 51702; 71046; 80053; 80307; 81001; 83605; 83690; 83735; 85025; 85610; 85730; 87086; 87088; 87186; 96374; 99284; A4216; J0696; J7030; 99283